=== PATIENT | male | born 1990 | race African-American/Black ===

== ENCOUNTER 2019-06-21 11:11 | Emergency (ER) | payer BC ==
[2019-06-21] MEDS ORDERED: ASPIRIN 81 MG CHEWABLE TABLET ONE (11:41)
[2019-06-21] MEDS ORDERED: NA CHLORIDE 0.9% 1,000 ML ONE (11:41)
--- NOTE | 2019-06-21 12:02 | RAD REPORT ---
EXAM DESCRIPTION: RAD - Chest Single View - 06/21/2019 11:55 am CLINICAL HISTORY: CHEST PAIN Chest pain. COMPARISON: No comparisons FINDINGS: Portable technique limits examination quality. The lungs are grossly clear. The heart is normal in size. No displaced fractures. IMPRESSION: No acute intrathoracic process suspected.
[2019-06-21 12:14] LABS: Barbiturates NEGATIVE (NEGATIVE); Benzodiazepines NEGATIVE (NEGATIVE); Cocaine NEGATIVE (NEGATIVE); METHAMPHETAM NEGATIVE (NEGATIVE); Methadone NEGATIVE (NEGATIVE); Opiates NEGATIVE (NEGATIVE); Phencyclidine NEGATIVE (NEGATIVE); THC Cannibis NEGATIVE (NEGATIVE)
[2019-06-21 12:17] LABS: Absolute Lymphocytes (CBC) 0.5 K/uL (0.7-4.9); Basophils % 0.1 % (0-1.3); Hematocrit 49.1 % (39.6-49.0); Lymphocytes % 6.5 % (15.3-44.8); MPV 9.6 fL (7.6-11.3); Protime INR 1.14; RBC Red Blood Cell Count 5.28 M/uL (4.33-5.43)
[2019-06-21 12:25] LABS: ALT/SGPT 55 U/L (12-78); AST/SGOT 30 U/L (15-37); Albumin 3.9 g/dL (3.4-5.0); Alkaline Phosphatase 60 U/L (45-117); BUN Blood Urea Nitrogen 12 mg/dL (7-18); Bicarbonate 27 mmol/L (21-32); Bilirubin Direct 0.1 mg/dL (0-0.2); Bilirubin Total 0.6 mg/dL (0.2-1.0); Creatine Phosphokinase 262 U/L (39-308); Glucose Level 100 mg/dL (74-106); Magnesium 1.6 mg/dL (1.8-2.4); NT PRO-BNP 20 pg/mL (<125); Potassium 3.4 mmol/L (3.5-5.1); Sodium Level 138 mmol/L (136-145); Troponin (Emerg Dept Use Only) < 0.02 ng/mL (0.0-0.045)
[2019-06-21] MEDS ORDERED: MAGNESIUM SULFATE 1 gm IVPB 1 GM/100 ML BAG IV ONE (12:36)
[2019-06-21] MEDS ORDERED: POTASSIUM 25 MEQ EFFERV TAB ONE (12:36)
--- NOTE | 2019-06-21 12:59 | EDPHYS ---
Physician Documentation [facility] Name: Homero Neri JR. Age: 28 yrs Sex: Male : 1990 Arrival Date: 06/21/2019 Time: 11:17 Bed 16 Private MD: ED Physician Jese Campos HPI: 06/21 11:45 This 28 yrs old Black Male presents to ER via Ambulatory with complaints of Abnormal cp Lab Results. 11:45 The patient or guardian reports chest pain that is located primarily in the anterior cp chest wall. The pain does not radiate. The chest pain is described as sharp. Duration: The patient or guardian reports multiple episodes, that have now resolved. 11:45 Associated signs and symptoms: Pertinent negatives: cough, lower extremity pain, lower cp extremity swelling, palpitations, recent travel, shortness of breath, syncope, vomiting. Severity of pain: in the emergency department the pain has resolved yesterday. Patient reports no pain today. Patient referred to ED from [place] for c/o chest pain yesterday while at work. Patient reports 2 brief episodes that resolved after several seconds. Patient denies any chest pain today. Historical: - Allergies: 11:24 Bactrim; aa5 - Home Meds: 11:24 None [Active]; aa5 - PMHx: 11:24 PTSD; Depression; aa5 - PSHx: 11:24 Appendectomy; aa5 - Immunization history:: Adult Immunizations up to date. - Social history:: Smoking status: Patient/guardian denies using tobacco. - Ebola Screening: : No symptoms or risks identified at this time. ROS: 11:50 Constitutional: Negative for body aches, chills, fever, poor PO intake. cp 11:50 Eyes: Negative for injury, pain, redness, and discharge. cp 11:50 ENT: Negative for drainage from ear(s), ear pain, sore throat, difficulty swallowing, difficulty handling secretions. 11:50 Neck: Negative for pain with movement, pain at rest, stiffness, tenderness. 11:50 Cardiovascular: Positive for chest pain, Negative for palpitations. 11:50 Respiratory: Negative for cough, shortness of breath, wheezing. 11:50 Abdomen/GI: Negative for abdominal pain, nausea, vomiting, and diarrhea, anorexia, black/tarry stool, rectal bleeding. 11:50 Back: Negative for radiated pain. 11:50 : Negative for urinary symptoms, difficulty urinating, testicular pain 11:50 Skin: Negative for cellulitis, rash. 11:50 Neuro: Negative for altered mental status, headache, syncope, weakness. 11:50 All other systems are negative. Exam: 11:55 Constitutional: The patient appears in no acute distress, alert, awake, cp non-diaphoretic, non-toxic, well developed, well nourished. 11:55 Head/Face: Normocephalic, atraumatic. cp 11:55 Eyes: Periorbital structures: appear normal, Conjunctiva: normal, no exudate, no cp injection, Lids and lashes: appear normal, bilaterally. 11:55 ENT: External ear(s): are unremarkable, Nose: is normal, Mouth: is normal, Posterior cp pharynx: is normal, airway is patent, no erythema, no exudate. 11:55 Neck: ROM/movement: is normal, is supple, without pain, no range of motions limitations, no nuchal rigidity. 11:55 Chest/axilla: Inspection: normal, Palpation: is normal, no crepitus, no tenderness. 11:55 Cardiovascular: Rate: normal, Rhythm: regular, Pulses: Heart sounds: murmur, not appreciated, rub, not appreciated, gallop, not appreciated, Edema: is not appreciated. 11:55 Respiratory: the patient does not display signs of respiratory distress, Respirations: normal, no use of accessory muscles, no retractions, no splinting, no tachypnea, labored breathing, is not present, Breath sounds: are clear throughout, no decreased breath sounds, no stridor, no wheezing. 11:55 Abdomen/GI: Inspection: abdomen appears normal, Bowel sounds: active, all quadrants, Palpation: abdomen is soft and non-tender, in all quadrants. 11:55 Back: pain, is absent, ROM is normal. 11:55 Skin: no rash present. 11:55 Neuro: Orientation: to person, place \T\ time. Mentation: is normal, Cerebellar function: is grossly normal, Motor: moves all fours, strength is normal, Sensation: is normal. 12:04 ECG was reviewed by the Attending Physician. Vital Signs: 11:24 BP 107 / 60; Pulse 92; Resp 18 S; Temp 99.6(O); Pulse Ox 98% on R/A; Weight 74.84 kg aa5 (R); Height 5 ft. 8 in. (172.72 cm) (R); Pain 0/10; 12:45 BP 112 / 64; Pulse 82; Resp 15; Pulse Ox 99% on R/A; Pain 0/10; hb 11:24 Body Mass Index 25.09 (74.84 kg, 172.72 cm) aa5 MDM: 11:25 Patient medically screened. cp 12:00 Differential diagnosis: abnormal EKG, acute myocardial infarction, acute pericarditis, cp pleurisy, pneumonia, pneumothorax, pulmonary embolus. 12:55 Data reviewed: vital signs, nurses notes, lab test result(s), EKG, radiologic studies, cp plain films. 12:55 Test interpretation: by ED physician or midlevel provider: ECG, plain radiologic cp studies. 12:56 ED course: VSS. No complaints of chest pain today. EKG and troponin negative. Will cp discharge to home for continued monitoring. 06/21 11:36 Order name: Basic Metabolic Panel; Complete Time: 12:30 06/21 12:30 Interpretation: Normal except: K 3.4. 06/21 11:36 Order name: CBC with Diff; Complete Time: 12:30 06/21 12:31 Interpretation: Normal except: HCT 49.1; MARISELA% 83.4; LYM% 6.5; LYMA 0.5. 06/21 11:36 Order name: LFT's; Complete Time: 12:30 06/21 12:53 Interpretation: Normal except: GLOB 4.1; A/G 1.0. 06/21 11:36 Order name: Magnesium; Complete Time: 12:30 06/21 12:53 Interpretation: Abnormal: MG 1.6. 06/21 11:36 Order name: NT PRO-BNP; Complete Time: 12:30 06/21 11:36 Order name: PT-INR; Complete Time: 12:30 06/21 11:36 Order name: Troponin (emerg Dept Use Only); Complete Time: 12:30 06/21 11:36 Order name: XRAY Chest (1 view); Complete Time: 12:30 06/21 12:53 Interpretation: Report review. 06/21 11:36 Order name: CPK; Complete Time: 12:30 cp 06/21 11:36 Order name: D-Dimer; Complete Time: 12:30 06/21 11:36 Order name: UDS; Complete Time: 12:30 06/21 12:54 Interpretation: Reviewed. 06/21 11:49 Order name: Urine Dipstick--Ancillary (enter results) ms 06/21 12:10 Order name: Influenza Screen (a \T\ B); Complete Time: 12:52 06/21 12:52 Interpretation: Reviewed. 06/21 11:36 Order name: EKG; Complete Time: 11:38 06/21 11:36 Order name: Cardiac monitoring; Complete Time: 11:49 06/21 11:36 Order name: EKG - Nurse/Tech; Complete Time: 11:49 06/21 11:36 Order name: IV Saline Lock; Complete Time: 11:49 06/21 11:36 Order name: Labs collected and sent; Complete Time: 11:50 06/21 11:36 Order name: O2 Per Protocol; Complete Time: 11:50 06/21 11:36 Order name: O2 Sat Monitoring; Complete Time: 12:01 06/21 11:36 Order name: Urine Dipstick-Ancillary (obtain specimen); Complete Time: 11:49 cp EC:04 Rate is 82 beats/min. Rhythm is regular. [place] interval is normal. QRS interval is normal. cp QT interval is normal. Interpreted by me. Reviewed by me. Administered Medications: 11:49 Drug: Aspirin Chewable Tablet 324 mg Route: PO; hb 12:35 Follow up: Response: No adverse reaction hb 11:49 Drug: NS 0.9% 1000 ml Route: IV; Rate: 1 bolus; Site: left antecubital; hb 12:45 Follow up: Response: No adverse reaction; IV Status: Completed infusion; IV Intake: hb 1000ml 12:40 Drug: Magnesium Sulfate 1 grams Route: IVPB; Infused Over: 1 hrs; Site: left rv antecubital; 13:38 Follow up: Response: No adverse reaction; IV Status: Completed infusion; IV Intake: hb 100ml 12:41 Drug: Potassium Effervescent Tablet 25 mEq Route: PO; rv 13:22 Follow up: Response: No adverse reaction hb Disposition: 06/21/19 12:57 Discharged to Home. Impression: Other chest pain. - Condition is Stable. - Discharge Instructions: Nonspecific Chest Pain. - Prescriptions for Ibuprofen 800 mg Oral Tablet - take 1 tablet by ORAL route every 8 hours As needed take with food; 30 tablet. - Medication Reconciliation Form, Thank You Letter, Antibiotic Education, Prescription Opioid Use form. - Work release form (06/21/19 13:40). hb - Follow up: Private Physician; When: 2 - 3 days; Reason: Recheck today's complaints. - Problem is new. - Symptoms have improved. Signatures: Dispatcher [employer] EDMS Idalia Boston RN RN aa5 Wesly Kumar PA PA cp Corrina Dixon, RN RN Jatin Wills RN RN rv Corrections: (The following items were deleted from the chart) 13:39 12:57 06/21/2019 12:57 Discharged to Home. Impression: Other chest pain. Condition is hb Stable. Forms are Medication Reconciliation Form, Thank You Letter, Antibiotic Education, Prescription Opioid Use. Follow up: Private Physician; When: 2 - 3 days; Reason: Recheck today's complaints. Problem is new. Symptoms have improved. cp
--- NOTE | 2019-06-21 12:59 | ER ---
Nurse's Notes [facility] Name: Homero Neri JR. Age: 28 yrs Sex: Male : 1990 Arrival Date: 06/21/2019 Time: 11:17 Bed 16 Private MD: Diagnosis: Other chest pain Presentation: 06/21 11:22 Presenting complaint: Patient states: "I went to the [facility] for chest pain and they did and aa5 EKG and it was abnormal so they sent me here". Pt reports chest pain since yesterday. Transition of care: patient was not received from another setting of care. Onset of symptoms was May 2019. Risk Assessment: Do you want to hurt yourself or someone else? Patient reports no desire to harm self or others. Initial Sepsis Screen: Does the patient meet any 2 criteria? No. Patient's initial sepsis screen is negative. Does the patient have a suspected source of infection? No. Patient's initial sepsis screen is negative. Care prior to arrival: None. 11:22 Acuity: ROVERTO 3 aa5 11:22 Method Of Arrival: Ambulatory aa5 Historical: - Allergies: 11:24 Bactrim; aa5 - Home Meds: 11:24 None [Active]; aa5 - PMHx: 11:24 PTSD; Depression; aa5 - PSHx: 11:24 Appendectomy; aa5 - Immunization history:: Adult Immunizations up to date. - Social history:: Smoking status: Patient/guardian denies using tobacco. - Ebola Screening: : No symptoms or risks identified at this time. Screenin:50 Abuse screen: Denies threats or abuse. Denies injuries from another. Nutritional hb screening: No deficits noted. Tuberculosis screening: No symptoms or risk factors identified. Fall Risk None identified. Assessment: 11:45 General: Appears in no apparent distress. Behavior is calm, cooperative. Pain: Denies hb pain. Neuro: Level of Consciousness is awake, alert, obeys commands, Oriented to person, place, time, situation. Cardiovascular: Capillary refill < 3 seconds Patient's skin is warm and dry. Respiratory: Airway is patent Respiratory effort is even, unlabored, Respiratory pattern is regular, symmetrical, Breath sounds are clear bilaterally. GI: No signs and/or symptoms were reported involving the gastrointestinal system. : No signs and/or symptoms were reported regarding the genitourinary system. EENT: No signs and/or symptoms were reported regarding the EENT system. Derm: Skin is intact, is healthy with good turgor. Musculoskeletal: No signs and/or symptoms reported regarding the musculoskeletal system. 12:45 Reassessment: Patient appears in no apparent distress at this time. Patient and/or hb family updated on plan of care and expected duration. Pain level reassessed. Patient is alert, oriented x 3, equal unlabored respirations, skin warm/dry/pink. Patient denies pain at this time. 13:12 Reassessment: Discharge ordered, IV medication infusing at this time. hb Vital Signs: 11:24 BP 107 / 60; Pulse 92; Resp 18 S; Temp 99.6(O); Pulse Ox 98% on R/A; Weight 74.84 kg aa5 (R); Height 5 ft. 8 in. (172.72 cm) (R); Pain 0/10; 12:45 BP 112 / 64; Pulse 82; Resp 15; Pulse Ox 99% on R/A; Pain 0/10; hb 11:24 Body Mass Index 25.09 (74.84 kg, 172.72 cm) aa5 ED Course: 11:17 Patient arrived in ED. mr 11:22 Arm band placed on. aa5 11:23 Triage completed. aa5 11:25 Wesly Kumar PA is PHCP. cp 11:25 Jese Campos MD is Attending Physician. cp 11:38 Corrina Dixon, RN is Primary Nurse. hb 11:50 Patient has correct armband on for positive identification. Bed in low position. Call hb light in reach. Side rails up X 1. 11:51 Inserted saline lock: 20 gauge in left antecubital area, using aseptic technique. Blood rv collected. 11:55 X-ray completed. Portable x-ray completed in exam room. Patient tolerated procedure sw well. 11:58 XRAY Chest (1 view) In Process Unspecified. EDMS 12:04 EKG done, by retail service technician. reviewed by Wesly RUDD. at1 13:39 No provider procedures requiring assistance completed. IV discontinued, intact, hb bleeding controlled, No redness/swelling at site. Administered Medications: 11:49 Drug: Aspirin Chewable Tablet 324 mg Route: PO; hb 12:35 Follow up: Response: No adverse reaction hb 11:49 Drug: NS 0.9% 1000 ml Route: IV; Rate: 1 bolus; Site: left antecubital; hb 12:45 Follow up: Response: No adverse reaction; IV Status: Completed infusion; IV Intake: hb 1000ml 12:40 Drug: Magnesium Sulfate 1 grams Route: IVPB; Infused Over: 1 hrs; Site: left rv antecubital; 13:38 Follow up: Response: No adverse reaction; IV Status: Completed infusion; IV Intake: hb 100ml 12:41 Drug: Potassium Effervescent Tablet 25 mEq Route: PO; rv 13:22 Follow up: Response: No adverse reaction hb Intake: 12:45 IV: 1000ml; Total: 1000ml. hb 13:38 IV: 100ml; Total: 1100ml. hb Outcome: 12:57 Discharge ordered by MD. cp 13:39 Discharged to home ambulatory, with significant other. hb 13:39 Condition: stable 13:39 Discharge instructions given to patient, Instructed on discharge instructions, follow up and referral plans. medication usage, Demonstrated understanding of instructions, follow-up care, medications. 13:39 Patient left the ED. hb Signatures: Dispatcher [employer] EDMS Shanique SouzaIdalia, RN RN aa5 Cathy Jessica, gallery or museum guide EKG Tat1 Amy Jaime Corey, PA PA cp Baxter, Heather, RN RN Jatin Wills, RN RN rv
[2019-06-21 13:36] LABS: Urine Blood 1+ (NEG); Urine Glucose NEGATIVE (NEG); Urine Protein 1+ (NEG)
--- NOTE | 2019-06-21 15:29 | EKG ---
Test Date: 2019-06-21 Test Time: 12:00:44 Branch Account Manager: JUAN A MEASUREMENT RESULTS: Intervals: Rate: 82 ND: 182 QRSD: 96 QT: 342 QTc: 399 [place]: P: 71 ND: 182 QRS: 69 T: 44 INTERPRETIVE STATEMENTS: Normal sinus rhythm with sinus arrhythmia Early repolarization Normal ECG No previous ECG available for comparison Electronically Signed On 06-21-19 15:28:36 CDT by Cornelius Sifuentes
== END 2019-06-21 13:39 | disposition home or self-care (01) ==
LOC: ER 11:11
DX: R07.89 Other chest pain (principal); Z88.1 Allergy status to other antibiotic agents
CPT/HCPCS: 96365; 96361; 93005; 85025; 80048; 36415; 83735; 82550; 85610; 85379; 80076; 80307 ×8; 81003; 84484; 83880; 87804 ×2; 71045; 99284; J3475; J7030